=== PATIENT | female | born 1980 | race Caucasian/White ===

== ENCOUNTER → 2018-01-24 | Outpatient (CLI) | payer BC, OTHER ==
[2018-01-24 16:23] LABS: T4, Free (Free Thyroxine) 0.92 ng/dL (0.78-2.19)
[2018-01-25 02:09] LABS: Thyroid Peroxidase Antibodies 45.8 U/mL (0.0-60.0)
--- NOTE | 2018-01-25 10:17 | US ---
EXAMINATION TYPE: US thyroid st tissue head/neck DATE OF EXAM: 01/24/2018 COMPARISON: NONE CLINICAL HISTORY: E04.1 NONTOXIC SINGLE THYROID NODULE. Thyroid nodule GLAND SIZE: Right Lobe: 6.1 x 2.8 x 2.9 cm Overall Parenchyma: homogenous Left Lobe: 4.8 x 1.3 x 1.1 cm Overall Parenchyma: homogeneous Isthmus Thickness: 0.3 cm NODULES RIGHT: # of nodules measured on right: 1 1. 3.1 X 2.6 x 3.2 cm hypoechoic complex nodule at the mid pole with well-defined margins. This nod ule is wider than tall and shows intranodular vascularity. Prior size: no previous LEFT: # of nodules measured on left: 0 ISTHMUS: # of nodules measured in the isthmus: 0 Bilateral neck scanned, no evidence of lymphadenopathy. IMPRESSION: Thyromegaly with a 3.1 cm complex nodule within the right lobe of the thyroid.
== END | disposition home or self-care (01) ==
LOC: LABWHC1 15:18
PROVIDERS: ATTEND Internal Medicine Endocrinology, Diabetes & Metabolism
DX: E04.1 Nontoxic single thyroid nodule (principal)
CPT/HCPCS: 36415; 76536; 82533; 84439; 84443; 84480; 86376

== ENCOUNTER → 2022-07-24 | Outpatient (CLI) | payer BC ==
[2022-07-24 09:30] VITALS: BP 112/70; PULSE 88; RESP 18; TEMP 98.7
--- NOTE | 2022-07-24 10:33 | P.GSHP ---
History of Present Illness H&P Date: 07/24/22 Chief Complaint: breast pain Huseyin is a 41 year old white female seen in consultation for Dr. Holden regarding left breast pain. She had a bilateral mammogram on 05-01-22 which revealed an area of concern in the left breast; compression views this was less apparent however this which led [place] [id number]. No lesions of concern were identified and this was categorized as BIRADS 1. The patient had previous to this workup undergone an ultrasound of the chest on 83. On the chest ultrasound no suspicious masses to fluid collection was identified in the area of the left upper chest mass. The patient had the chest wall ultrasound done after she had an upper respiratory infection with coughing and no discrete mass or nodule was seen. She does have persistent discomfort at this site which radiates into the breast. She had an internal heart monitor for palpitations in her left chest which was removed several years ago. Everything was OK with this moniter. The left breast pain has been ongoing for several months. It is consistent and is worse with movement. It started after an upper respiratory infection in which she was coughing. It starts in the chest wall and radiates into the breast. She does not complain of any new lumps masses or nodules in the breast. She is not complaining of any nipple discharge or skin changes. She has never had any surgery on her breast. She has no recent trauma or infection in the breast. The pain is 3 on a scale of 1-10, it is consistent but not continuous, it is not present on the right side. Patient does not have any change in her breast discomfort related to her menstrual cycle Caffiene: 24 oz/day nicotine: none chocolate: occasional BCP: patient had an IUD in place; alvino for 4 years Family History: paternal grandmother: lung cancer smoker Hormonal history: Menarche: 17 , breast fed: no, age at : 25 periods irregular; LMP: last week Surgical history: Right knee surgery Right foot surgery Cholecystectomy Right thyroidectomy gastric bypass 2014 Medical history: Chronic headaches Arthritis Knee and foot difficulty Hypothyroid Social history: Nicotine: Negative Alcohol: Negative Drugs: Negative - Constitutional Constitutional: Denies chills, Denies fever - EENT Eyes: denies blurred vision Ears: bilateral: tinnitus, deny: decreased hearing Ears, nose, mouth and throat: Reports headache - Breasts Breasts: bilateral: as per HPI - Cardiovascular Cardiovascular: Reports as per HPI - Respiratory Comment: COVID cough Respiratory: Reports cough - Gastrointestinal Gastrointestinal: Reports as per HPI - Genitourinary (Female) Genitourinary: Denies dysuria, Denies hematuria - Menstruation Menstruation: Reports cycle variable - Musculoskeletal Comment: arthritis - Integumentary Integumentary: Denies pruritus, Denies rash - Neurological Neurological: Denies numbness, Denies weakness - Psychiatric Psychiatric: Denies anxiety, Denies depression - Endocrine Comment: hypothyroid - Hematologic/Lymphatic Comment: none - Allergic/Immunologic Allergic/Immunologic: Reports seasonal allergies Past Medical History Past Medical History: GERD/Reflux, Hypertension, Osteoarthritis (OA), Sleep Apnea/CPAP/BIPAP, Thyroid Disorder Additional Past Medical History / Comment(s): Arthritis in Feet. HIATAL HERNIA. BORDERLINE SLEEP APNEA. THYROID NODULES. FATTY LIVER. History of Any Multi-Drug Resistant Organisms: None Reported Past Surgical History: Section, Cholecystectomy, Orthopedic Surgery Additional Past Surgical History / Comment(s): Lt Knee Surgery; EXC Ganglion Cyst Rt foot. 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 [employer] Smoking Status: Never smoker Past Alcohol Use History: None Reported Past Drug Use History: None Reported - Past Family History Mother Family Medical History: No Reported History Medications and Allergies Home Medications Medication Instructions Recorded Confirmed Type Loratadine-Pseudoeph 5-120 mg 1 each PO DIRECTED PRN 06/27/15 07/24/22 History [Claritin-D 12 HR] Cholecalciferol (Vitamin D3) 10,000 units PO DIRECTED 10/23/15 07/24/22 Hi story [Vitamin D3] Cyanocobalamin (Vitamin B-12) 5,000 mcg PO DAILY 04/29/16 07/24/22 History [Vitamin B12] Baclofen [Lyvispah] 20 mg PO DAILY 07/24/22 07/24/22 History Indomethacin [Indocin] 25 mg PO DAILY 07/24/22 07/24/22 History Levothyroxine Sodium [Synthroid] 112 mcg PO DAILY 07/24/22 07/24/22 History Melatonin [Melatonin ER] 20 mg PO HS 07/24/22 07/24/22 History clonazePAM [KlonoPIN] 1 mg PO HS 07/24/22 07/24/22 History hydroCHLOROthiazide 25 mg PO DAILY 07/24/22 07/24/22 History levETIRAcetam [Keppra] 750 mg PO DAILY 07/24/22 07/24/22 History Allergies Allergy/AdvReac Type Severity Reaction Status Date / Time No Known Allergies Allergy Verified 07/24/22 09:23 Surgical - Exam Vital Signs Temp Pulse Resp BP Pulse Ox 98.7 F 88 18 112/70 97 07/24/22 09:28 07/24/22 09:28 07/24/22 09:28 07/24/22 09:28 07/24/22 09:28 BMI: 61.3 - General no distress - Eyes normal ocular movement - ENT no hearing loss - Neck trachea midline - Respiratory normal respiratory effort - Cardiovascular Heart Sounds: normal: S1, S2 - Abdomen Abdomen: soft, non tender, no guarding, no rigid, no rebound - Integumentary normal turgor - Neurologic no disoriented, no combative - Musculoskeletal normal gait, normal posture - Psychiatric oriented to time, oriented to person, oriented to place, speech is normal, memory intact Breast Exam: BRA: 36C inspection: Fungal infection under both breasts, bilateral grade 3 ptosis Palpation: Right breast: Multipositional exam fibrocystic changes no dominant masses or nodules of concern Right axilla: No adenopathy of concern Left breast: Multipositional exam no dominant masses or nodules of concern Left axilla: No adenopathy of concern Results Mammogram and ultrasound results reviewed Assessment and Plan Assessment: Impression: Fibrocystic breast changes Chest wall discomfort radiating into the left breast of the lesion of concern in the left breast on the chest wall which were worn interventional biopsy Fungal infection under both breasts Probable scar tissue left chest wall patient had prior internal heart monitor Plan: Conservative management Repeat bilateral mammogram in 1 year Follow-up in 6 months Follow-up sooner if pain does not resolve CC: Dr. Asha Holden, [facility] [employer]
== END | disposition home or self-care (01) ==
LOC: WWCWWP 08:59
PROVIDERS: ATTEND Surgery
DX: Z53.9 Procedure and treatment not carried out, unspecified reason (principal)